=== PATIENT | male | born 1980 | race Caucasian/White ===

== ENCOUNTER 2019-08-26 00:11 | Emergency (ER) | payer MEDICAID ==
[~2019-08-26] VITALS: Ht 170.2 cm; Wt 81.6 kg
[2019-08-26 02:41] VITALS: BP 119/72
== END 2019-08-26 02:41 | disposition home or self-care (01) ==
LOC: ED 00:11
DX: S61.411A Laceration without foreign body of right hand, initial encounter (principal); W26.8XXA Contact with other sharp object(s), not elsewhere classified, initial encounter; Y93.89 Activity, other specified; Y92.89 Other specified places as the place of occurrence of the external cause; Y99.8 Other external cause status
CPT/HCPCS: 36600; 90715; Q0092

== ENCOUNTER 2020-01-11 19:43 | Emergency (ER) | payer MEDICAID ==
[~2020-01-11] VITALS: Ht 167.6 cm; Wt 79.4 kg
[2020-01-11 19:55] VITALS: Ht 167.6 cm; Wt 79.4 kg
[2020-01-11 22:03] VITALS: BP 136/92
== END 2020-01-11 22:03 | disposition home or self-care (01) ==
LOC: ED 19:43
DX: J02.8 Acute pharyngitis due to other specified organisms (principal)